=== PATIENT | male | born 1990 | race Two or more races ===

== ENCOUNTER 2023-05-05 02:01 | Inpatient (IN) | payer OTHER ==
[~2023-05-05] VITALS: Ht 149.9 cm; Wt 54.0 kg
[2023-05-05 02:56] LABS: BASOPHILS % (AUTO) 0.4 % (0.0-2.0); EOSINOPHILS # (AUTO) 0.1 K/uL (0.0-0.7); EOSINOPHILS % (AUTO) 1.1 % (0.0-6.0); HEMATOCRIT 38 % (39-51); HEMOGLOBIN 13.1 g/dL (13.5-17.5); LYMPHOCYTES # (AUTO) 0.5 K/uL (0.8-4.8); LYMPHOCYTES % (AUTO) 6.1 % (20.0-44.0); MEAN CORPUSCULAR HEMOGLOBIN 29 PG (26.0-33.0); MEAN CORPUSCULAR HGB CONC 34 g/dl (31.0-36.0); MEAN CORPUSCULAR VOLUME 86 fL (80-96); MONOCYTES # (AUTO) 0.7 K/uL (0.1-1.30); MONOCYTES % (AUTO) 8.8 % (2.0-12.0); NEUTROPHILS # (AUTO) 6.8 K/uL (1.8-8.9); NEUTROPHILS % (AUTO) 83.6 % (43.0-81.0); PLATELET COUNT (AUTO) 438 K/uL (150-450); RED BLOOD CELL COUNT(AUTO) 4.45 MIL/uL (4.5-6.0); RED CELL DISTRIBUTION WIDTH 14.9 % (11.5-15.0); WHITE BLOOD COUNT (AUTO) 8.1 K/uL (4.3-11.0)
[2023-05-05 03:05] LABS: CALCIUM, SERUM 8.8 mg/dL (8.5-10.1); CREATININE 0.6 mg/dL (0.6-1.3); POTASSIUM 4.8 mmol/L (3.5-5.1)
[2023-05-05 03:11] LABS: ALBUMIN 2.6 g/dL (3.4-5.0); BILIRUBIN,TOTAL 0.7 mg/dL (0.2-1.0)
[2023-05-05 04:09] LABS: APPEARANCE,URINE SLIGHTLY CLOUDY (CLEAR); BILIRUBIN,URINE 1+ (NEGATIVE); BLOOD, URINE NEGATIVE Ery/uL (NEGATIVE); COLOR,URINE YELLOW (YELLOW); KETONES,URINE 3+ mg/dL (NEGATIVE); LEUKOCYTE ESTERASE ,URINE NEGATIVE (NEGATIVE); NITRITE, URINE POSITIVE (NEGATIVE); PROTEIN,URINE TRACE mg/dl (NEGATIVE); UGLUCOSE NEGATIVE (NEGATIVE); UROBILINOGEN,URINE 0.2 EU/dL (0.2)
[2023-05-05 04:13] LABS: ADD URINE CULTURE YES; BACTERIA,URINE Few /HPF (None Seen); SQUAMOUS EPITHELIAL CELL,UR Rare /HPF (None Seen)
[2023-05-05 04:17] LABS: AMPHETAMINE, URINE NEGATIVE (NEGATIVE); BARBITURATE, URINE NEGATIVE (NEGATIVE); BENZODIAZEPINE, URINE NEGATIVE (NEGATIVE); CANNABINOID, URINE NEGATIVE (NEGATIVE); COCCAINE, URINE NEGATIVE (NEGATIVE); OPIATE, URINE NEGATIVE (NEGATIVE); PHENCYCLIDINE SCREEN,URINE NEGATIVE (NEGATIVE)
[2023-05-05] MEDS ORDERED: IV NS 0.9% 1,000 ML IV ONE (05:00)
[2023-05-05] MEDS ORDERED: PIPERACILLIN /TAZOBACTAM 3.375 G in IV D5W 50 ML IV ONE (05:00)
[2023-05-05] MEDS ORDERED: PIPERACI/TAZO 3.375GM/D5W 50ML PB IV ONE (05:04)
[2023-05-05] MEDS ORDERED: Z GUARD REMEDY 4 OZ OINT TP PRN (06:00)
[2023-05-05] MEDS ORDERED: MORPHINE SULFATE INJ 2 MG/ML DISP.SYRIN IV PRN (06:00)
[2023-05-05] MEDS ORDERED: MAGNESIUM HYDROXIDE 30 ML UDC PO PRN (06:00)
[2023-05-05] MEDS ORDERED: DOCU100T2 PO (07:40)
[2023-05-05] MEDS ORDERED: CIPR500T5 PO (07:40)
[2023-05-05] MEDS ORDERED: HYDR-4209 PO (07:40)
[2023-05-05] MEDS ORDERED: POLY17PO4 PO (07:40)
[2023-05-05] MEDS ORDERED: METR-147 PO (07:40)
[2023-05-05] MEDS: PANTOPRAZOLE 40 MG VIAL IV SCH (10:47)
[2023-05-05] MEDS: IV D5/ 0.9% NACL 1,000 ML IV PRN ×2 (11:07→22:49)
[2023-05-05] MEDS ORDERED: PIPERACILLIN /TAZOBACTAM 3.375 G in IV D5W 50 ML IV SCH (13:00)
[2023-05-05] MEDS: CEFEPIME 1 GM in IV D5W 50 ML IV SCH ×2 (15:12→22:49)
[2023-05-05 16:00] VITALS: BP 104/54; TEMP 98.3; O2SAT 100
[2023-05-06 04:00] VITALS: BP 95/58; TEMP 97.9; O2SAT 97
[2023-05-06] MEDS: CEFEPIME 1 GM in IV D5W 50 ML IV SCH ×3 (06:17→22:58)
[2023-05-06] MEDS: IV D5/ 0.9% NACL 1,000 ML IV PRN ×2 (06:27→23:04)
[2023-05-06 08:03] LABS: BASOPHILS % (AUTO) 0.4 % (0.0-2.0); EOSINOPHILS # (AUTO) 0.4 K/uL (0.0-0.7); EOSINOPHILS % (AUTO) 6.8 % (0.0-6.0); HEMATOCRIT 30 % (39-51); HEMOGLOBIN 10.2 g/dL (13.5-17.5); LYMPHOCYTES # (AUTO) 0.7 K/uL (0.8-4.8); LYMPHOCYTES % (AUTO) 13.4 % (20.0-44.0); MEAN CORPUSCULAR HEMOGLOBIN 30 PG (26.0-33.0); MEAN CORPUSCULAR HGB CONC 34 g/dl (31.0-36.0); MEAN CORPUSCULAR VOLUME 86 fL (80-96); NEUTROPHILS # (AUTO) 3.4 K/uL (1.8-8.9); NEUTROPHILS % (AUTO) 61.4 % (43.0-81.0); PLATELET COUNT (AUTO) 376 K/uL (150-450); RED BLOOD CELL COUNT(AUTO) 3.46 MIL/uL (4.5-6.0); RED CELL DISTRIBUTION WIDTH 14.8 % (11.5-15.0); WHITE BLOOD COUNT (AUTO) 5.5 K/uL (4.3-11.0)
[2023-05-06 08:13] LABS: CALCIUM, SERUM 7.9 mg/dL (8.5-10.1); CREATININE 0.4 mg/dL (0.6-1.3); MAGNESIUM 1.7 mg/dL (1.8-2.4); PHOSPHORUS 2.5 mg/dL (2.5-4.9); POTASSIUM 3.2 mmol/L (3.5-5.1)
[2023-05-06 08:26] LABS: THYROID STIMULATING HORMONE 1.848 uIU/mL (0.358-3.74)
[2023-05-06] MEDS: PANTOPRAZOLE 40 MG VIAL IV SCH (09:07)
[2023-05-06] MEDS ORDERED: Magnesium 1GM/D5W 100ML PREMIX 100 ML IV SCH ×2 (10:00→12:00)
[2023-05-06] MEDS ORDERED: POTASSIUM CL. PREMIX PERIPHER. 50 ML IV SCH (11:00)
[2023-05-06 12:00] VITALS: BP 104/57; TEMP 98.8; O2SAT 97
[2023-05-06 13:39] LABS: BAND % (MANUAL) 2 % (0.0-5.0); EOSINOPHILS % (MANUAL) 7 % (0-4); HYPOCHROMASIA 1+; LYMPHOCYTES % (MANUAL) 15 % (16-48); MONOCYTES % (MANUAL) 17 % (0-11.0); NEUTROPHILS % (MANUAL) 59 (42-76); PLATELET ESTIMATE ADEQUATE
[2023-05-06] MEDS: POTASSIUM CHLORIDE 20 MEQ TAB.PRT.SR PO SCH ×4 (13:45→16:42)
[2023-05-06] MEDS: THERAHONEY GEL 1.5 OZ TUBE TP SCH (13:45)
[2023-05-06 20:00] VITALS: BP 107/52; TEMP 98.6; O2SAT 98
[2023-05-07 04:00] VITALS: BP 102/64; TEMP 97.7; O2SAT 97
[2023-05-07] MEDS: CEFEPIME 1 GM in IV D5W 50 ML IV SCH ×3 (06:39→23:06)
[2023-05-07 06:41] LABS: BASOPHILS % (AUTO) 0.5 % (0.0-2.0); EOSINOPHILS # (AUTO) 0.6 K/uL (0.0-0.7); EOSINOPHILS % (AUTO) 10.4 % (0.0-6.0); HEMATOCRIT 29 % (39-51); HEMOGLOBIN 10.1 g/dL (13.5-17.5); LYMPHOCYTES # (AUTO) 0.9 K/uL (0.8-4.8); LYMPHOCYTES % (AUTO) 16.8 % (20.0-44.0); MEAN CORPUSCULAR HEMOGLOBIN 30 PG (26.0-33.0); MEAN CORPUSCULAR HGB CONC 35 g/dl (31.0-36.0); MEAN CORPUSCULAR VOLUME 86 fL (80-96); MONOCYTES # (AUTO) 0.9 K/uL (0.1-1.30); MONOCYTES % (AUTO) 17.5 % (2.0-12.0); NEUTROPHILS % (AUTO) 54.8 % (43.0-81.0); PLATELET COUNT (AUTO) 363 K/uL (150-450); RED CELL DISTRIBUTION WIDTH 14.1 % (11.5-15.0); WHITE BLOOD COUNT (AUTO) 5.4 K/uL (4.3-11.0)
[2023-05-07 06:53] LABS: CREATININE 0.4 mg/dL (0.6-1.3); POTASSIUM 3.4 mmol/L (3.5-5.1)
[2023-05-07] MEDS ORDERED: POTASSIUM CHLORIDE 20 MEQ POWDER PACKET PO ONE (09:00)
[2023-05-07] MEDS: PANTOPRAZOLE 40 MG VIAL IV SCH (09:48)
[2023-05-07] MEDS: ENSURE CLEAR 237 ML LIQUID (MIX BERRY) PO SCH ×3 (09:48→17:43)
[2023-05-07] MEDS: THERAHONEY GEL 1.5 OZ TUBE TP SCH (09:49)
[2023-05-07] MEDS ORDERED: POTASSIUM CHLORIDE 20 MEQ TAB.PRT.SR PO ONE (11:00)
[2023-05-07 12:00] VITALS: BP 103/60; TEMP 98.4; O2SAT 97
[2023-05-07 12:04] LABS: ANISOCYTOSIS 1+; BASOPHILS % (MANUAL) 0 % (0.0-2.0); EOSINOPHILS % (MANUAL) 11 % (0-4); LYMPHOCYTES % (MANUAL) 23 % (16-48); MONOCYTES % (MANUAL) 12 % (0-11.0); NEUTROPHILS % (MANUAL) 54 (42-76); PLATELET ESTIMATE ADEQUATE
[2023-05-07] MEDS: METRONIDAZOLE 500MG/ NS 100ML 500 MG in PREMIX 1 EA IV SCH ×2 (12:19→21:26)
[2023-05-07 20:00] VITALS: BP 104/64; TEMP 96.8; O2SAT 100
[2023-05-08 04:00] VITALS: BP 110/65; TEMP 97; O2SAT 98
[2023-05-08] MEDS: METRONIDAZOLE 500MG/ NS 100ML 500 MG in PREMIX 1 EA IV SCH ×3 (04:47→22:03)
[2023-05-08] MEDS: IV D5/ 0.9% NACL 1,000 ML IV PRN ×2 (04:49→18:00)
[2023-05-08] MEDS: CEFEPIME 1 GM in IV D5W 50 ML IV SCH ×2 (06:30→15:42)
[2023-05-08 07:41] LABS: CALCIUM, SERUM 7.6 mg/dL (8.5-10.1); CREATININE 0.5 mg/dL (0.6-1.3); POTASSIUM 3.7 mmol/L (3.5-5.1)
[2023-05-08 08:53] LABS: BASOPHILS % (AUTO) 0.5 % (0.0-2.0); EOSINOPHILS # (AUTO) 0.8 K/uL (0.0-0.7); HEMOGLOBIN 11.2 g/dL (13.5-17.5); LYMPHOCYTES # (AUTO) 0.9 K/uL (0.8-4.8); MEAN CORPUSCULAR HEMOGLOBIN 30 PG (26.0-33.0); MONOCYTES # (AUTO) 0.9 K/uL (0.1-1.30); NEUTROPHILS # (AUTO) 3.5 K/uL (1.8-8.9); WHITE BLOOD COUNT (AUTO) 6.1 K/uL (4.3-11.0)
[2023-05-08 08:58] LABS: HEMATOCRIT 33 % (39-51); LYMPHOCYTES % (AUTO) 14.9 % (20.0-44.0); MEAN CORPUSCULAR HGB CONC 35 g/dl (31.0-36.0); MEAN CORPUSCULAR VOLUME 86 fL (80-96); MONOCYTES % (AUTO) 14.8 % (2.0-12.0); NEUTROPHILS % (AUTO) 56.8 % (43.0-81.0); PLATELET COUNT (AUTO) 388 K/uL (150-450); RED CELL DISTRIBUTION WIDTH 14.5 % (11.5-15.0)
[2023-05-08] MEDS: PANTOPRAZOLE 40 MG TABLET.DR PO SCH (09:00)
[2023-05-08] MEDS: ENSURE CLEAR 237 ML LIQUID (MIX BERRY) PO SCH ×3 (09:00→17:54)
[2023-05-08] MEDS: THERAHONEY GEL 1.5 OZ TUBE TP SCH (09:22)
[2023-05-08 12:00] VITALS: BP 110/65; TEMP 97; O2SAT 98
[2023-05-08] MEDS ORDERED: DIATR MEGLU/DIATRIZOATE SODIUM 30 ML BOTTLE (GASTROGRAPHIN) ONE (12:29)
[2023-05-08] MEDS ORDERED: METRONIDAZOLE 500MG/ NS 100ML 500 MG in PREMIX 1 EA IV SCH (12:30)
[2023-05-08] MEDS: CIPROFLOXACIN IV RTU 400 MG in PREMIX 1 EA IV SCH (13:00)
[2023-05-08] MEDS ORDERED: IOHEXOL-300 100 ML VIAL IV ONE (14:58)
[2023-05-08] MEDS ORDERED: IV NS 0.9% 250 ML IV ONE (14:58)
[2023-05-08 20:00] VITALS: BP 108/67; TEMP 98.2; O2SAT 100
[2023-05-08] MEDS ORDERED: GENTAMICIN 320 MG in IV D5W 100 ML IV SCH (20:00)
[2023-05-09] MEDS: VANCOMYCIN HCL 125 MG/2.5 ML ORAL.SUSP PO SCH ×4 (01:15→18:00)
[2023-05-09] MEDS: CIPROFLOXACIN IV RTU 400 MG in PREMIX 1 EA IV SCH (01:15)
[2023-05-09] MEDS: ONDANSETRON HCL/PF 4 MG/2 ML VIAL IVP PRN ×3 (02:32→21:23)
[2023-05-09 04:00] VITALS: BP 105/63; TEMP 97.5; O2SAT 100
[2023-05-09 04:45] LABS: CALCIUM, SERUM 7.9 mg/dL (8.5-10.1); CREATININE 0.4 mg/dL (0.6-1.3); POTASSIUM 3.3 mmol/L (3.5-5.1)
[2023-05-09] MEDS: METRONIDAZOLE 500MG/ NS 100ML 500 MG in PREMIX 1 EA IV SCH (05:58)
[2023-05-09] MEDS: POTASSIUM CL. PREMIX PERIPHER. 50 ML IV SCH ×4 (06:26→10:42)
[2023-05-09 08:00] VITALS: BP 90/70; TEMP 98.2; O2SAT 100
[2023-05-09] MEDS: PANTOPRAZOLE 40 MG TABLET.DR PO SCH (09:21)
[2023-05-09] MEDS: ENSURE CLEAR 237 ML LIQUID (MIX BERRY) PO SCH ×3 (09:21→16:56)
[2023-05-09] MEDS: THERAHONEY GEL 1.5 OZ TUBE TP SCH (09:22)
[2023-05-09] MEDS ORDERED: POTASSIUM CHLORIDE 20 MEQ TAB.PRT.SR PO ONE (11:00)
[2023-05-09] MEDS: METRONIDAZOLE 500 MG TABLET PO SCH ×2 (12:19→21:09)
[2023-05-09 16:00] VITALS: BP 96/58; TEMP 98.4; O2SAT 100
[2023-05-09] MEDS: IV D5/ 0.9% NACL 1,000 ML IV PRN (16:56)
[2023-05-09 17:54] LABS: URINE SODIUM, RANDOM 144 mmol/l (40-220)
[2023-05-09 20:00] VITALS: BP 99/65; TEMP 99.3; O2SAT 100
[2023-05-10] MEDS: IV D5/ 0.9% NACL 1,000 ML IV PRN (03:15)
[2023-05-10 05:48] VITALS: TEMP 97.2; O2SAT 100
[2023-05-10 07:42] LABS: CALCIUM, SERUM 7.9 mg/dL (8.5-10.1); CREATININE 0.6 mg/dL (0.6-1.3); POTASSIUM 3.6 mmol/L (3.5-5.1)
[2023-05-10 08:00] VITALS: BP 97/63; TEMP 98.1; O2SAT 100
[2023-05-10] MEDS: PANTOPRAZOLE 40 MG TABLET.DR PO SCH (09:49)
[2023-05-10] MEDS: ENSURE CLEAR 237 ML LIQUID (MIX BERRY) PO SCH ×2 (09:49→13:46)
[2023-05-10] MEDS: THERAHONEY GEL 1.5 OZ TUBE TP SCH (09:50)
[2023-05-10] MEDS: METRONIDAZOLE 500 MG TABLET PO SCH ×2 (09:50→13:41)
[2023-05-10 09:54] LABS: BASOPHILS % (AUTO) 0.6 % (0.0-2.0); EOSINOPHILS # (AUTO) 1.1 K/uL (0.0-0.7); EOSINOPHILS % (AUTO) 20.4 % (0.0-6.0); HEMATOCRIT 35 % (39-51); HEMOGLOBIN 11.9 g/dL (13.5-17.5); LYMPHOCYTES # (AUTO) 0.9 K/uL (0.8-4.8); MEAN CORPUSCULAR HEMOGLOBIN 29 PG (26.0-33.0); MEAN CORPUSCULAR HGB CONC 34 g/dl (31.0-36.0); MEAN CORPUSCULAR VOLUME 86 fL (80-96); MONOCYTES # (AUTO) 0.8 K/uL (0.1-1.30); MONOCYTES % (AUTO) 14.8 % (2.0-12.0); NEUTROPHILS # (AUTO) 2.6 K/uL (1.8-8.9); NEUTROPHILS % (AUTO) 47.2 % (43.0-81.0); PLATELET COUNT (AUTO) 425 K/uL (150-450); RED BLOOD CELL COUNT(AUTO) 4.12 MIL/uL (4.5-6.0); RED CELL DISTRIBUTION WIDTH 14.4 % (11.5-15.0); WHITE BLOOD COUNT (AUTO) 5.5 K/uL (4.3-11.0)
[2023-05-10 10:34] LABS: ALBUMIN 1.9 g/dL (3.4-5.0); BILIRUBIN,DIRECT 0.1 mg/dL (0.0-0.2); BILIRUBIN,TOTAL 0.3 mg/dL (0.2-1.0); TOTAL PROTEIN, SERUM 5.5 g/dL (6.4-8.2)
[2023-05-10] MEDS ORDERED: ENSURE ENLIVE 237 ML LIQUID (VANILLA) PO SCH (17:00)
[2023-05-15 15:24] LABS: OSMOLALITY,URINE 371 mOS/kg (340-1090)
== END 2023-05-10 16:39 | disposition home or self-care (01) | DRG 249 ==
LOC: ER 02:05 → TELE1 06:25 → MEDSG1 06:27
PROVIDERS: ADMIT Nurse Practitioner Acute Care; ATTEND Internal Medicine
DX: A09 Infectious gastroenteritis and colitis, unspecified (principal); G82.20 Paraplegia, unspecified; E44.0 Moderate protein-calorie malnutrition; K66.8 Other specified disorders of peritoneum; E87.1 Hypo-osmolality and hyponatremia; E88.09 Other disorders of plasma-protein metabolism, not elsewhere classified; L89.156 Pressure-induced deep tissue damage of sacral region; R18.8 Other ascites; N30.90 Cystitis, unspecified without hematuria; Z90.49 Acquired absence of other specified parts of digestive tract; E86.1 Hypovolemia; D64.9 Anemia, unspecified; E83.42 Hypomagnesemia; Z88.0 Allergy status to penicillin; R74.01 Elevation of levels of liver transaminase levels; Z68.24 Body mass index [BMI] 24.0-24.9, adult; E86.9 Volume depletion, unspecified; R53.1 Weakness; L76.34 Postprocedural seroma of skin and subcutaneous tissue following other procedure; Z85.830 Personal history of malignant neoplasm of bone; Y83.8 Other surgical procedures as the cause of abnormal reaction of the patient, or of later complication, without mention of misadventure at the time of the procedure; Y81.8 Miscellaneous general- and plastic-surgery devices associated with adverse incidents, not elsewhere classified; Y92.009 Unspecified place in unspecified non-institutional (private) residence as the place of occurrence of the external cause
CPT/HCPCS: 36410; 36415; 80048-TC; 80053-TC; 80076-TC; 80170-TC; 81001; 83605-TC; 83690-TC; 83735-TC; 83935-TC; 84100-TC; 84300-TC; 84443-TC; 85025-TC; 87040-TC; 87081-TC; 87086-TC; 89055; A4216; A4223; C9113; G0378; J0692; J0744; J1580; J2270; J2405; J2543; J3475; J3480; J7030; J7040; J7042; J7050; J7060; J7120; Q9963; Q9967